=== PATIENT | male | born 1990 | race Two or more races ===

== ENCOUNTER 2020-09-25 08:33 | Emergency (ER) | payer OTHER, SELFPAY ==
--- NOTE | ~2020-09-25 | XR_ITS ---
EXAMINATION: XR ELBOW, LEFT CLINICAL INFORMATION: Elbow pain. Rule out effusion. COMPARISON: None TECHNIQUE: AP, lateral, and oblique views of the left elbow. FINDINGS: There is no evidence of acute fracture or dislocation of the left elbow. No left elbow effusion is seen. Joint spaces are maintained. There is a large amount of edema seen about the adjacent soft tissues from the distal upper arm to the proximal forearm and olecranon bursitis cannot be excluded. XR/XR elbow LT 2V IMPRESSION: No bony abnormality of the left elbow identified. No left elbow effusion. Large amount of edema present within the soft tissues.
[2020-09-25 08:38] VITALS: BP 148/91; PULSE 87; RESP 18; TEMP 36.6; O2SAT 97; BMI 25.7
--- NOTE | 2020-09-25 08:49 | ED.GENADULT ---
HPI - General Adult General Chief complaint: Allergic Reaction Stated complaint: arm swelling Time Seen by Provider: 09/25/20 08:37 Source: patient Mode of arrival: ambulatory Limitations: no limitations History of Present Illness HPI narrative: 30-year-old male previously healthy here with complaints of left arm pain, itching and swelling. Patient tells me 2 days ago he was stung by a wasp on the left upper extremity. The next day he noticed increasing redness and swelling to the area. He was seen at urgent care yesterday and prescribed doxycycline. He has taken 2 doses of doxycycline. Today when he woke up he noticed some increasing redness and swelling and became concerned and brought himself to the emergency department. He denies any fevers, chills, body aches, muscle aches. He feels well otherwise. No previous reactions to bee stings. Related Data Allergies Allergy/AdvReac Type Severity Reaction Status Date / Time No Known Allergies Allergy Unverified 11/22/19 16:30 Review of Systems Review of Systems: Yes all other systems are reviewed and are negative Constitutional: Constitutional: Reports no additional constitutional complaints, Denies body ache(s), Denies chills, Denies fever(s), Denies headache(s) and Denies weakness Eyes: Eyes: Reports no additional eye complaints and Denies change in vision ENT: Reports system reviewed and no additional complaints, except as documented, Denies dizziness, Denies headache(s), Denies nasal congestion, Denies nasal discharge and Denies neck pain Cardiovascular: Cardiovascular: Reports no additional cardiovascular complaints, Denies chest pain, Denies leg edema and Denies dyspnea Respiratory: Respiratory: Reports no additional respiratory complaints, Denies cough and Denies dyspnea Gastrointestinal: Gastrointestinal: Reports no additional gastrointestinal complaints, Denies abdominal pain, Denies diarrhea, Denies nausea and Denies vomiting Genitourinary: Genitourinary: Denies urinary incontinence Musculoskeletal: Musculoskeletal: Reports no additional musculoskeletal complaints, Denies back pain, Denies arthralgias, Denies joint swelling, Denies neck pain, Denies numbness and Denies tingling Integumentary/Breasts: Skin/Breast: Reports system reviewed and no additional complaints, except as docu, Reports swelling, Reports erythema and Denies rash Neurologic: Reports system reviewed and no additional complaints, except as documented, Denies Abnormal speech present, Denies dizziness, Denies headache(s), Denies numbness, Denies tingling and Denies weakness PMFSH Past Medical History Attestation statement: The following information was validated with the patient. Source: old records reviewed and nursing notes reviewed Medical History No known health problems Social History Social History Patient Tobacco Use Status: Never used Tobacco Use of substances other than those prescribed or required for medical reasons: No Advance Directives: Yes Advance Directives Information Provided: Yes Advance Directives on File: No Physical Exam Vital Signs: Vital Signs: Last Vital Signs Temp 97.9 F 09/25/20 08:38 Pulse 87 09/25/20 08:38 Resp 18 09/25/20 08:38 BP 148/91 H 09/25/20 08:38 Pulse Ox 97 09/25/20 08:38 Body Mass Index 25.7 Const: General: cooperative, healthy appearing, comfortable and no acute distress Orientation/consciousness: patient oriented x3 Limitations: no limitations HENMT: Head: Yes normal to inspection Ears: hearing grossly normal bilaterally General nose exam: Normal external nose present Face and sinus: Yes normal facial exam Mouth: Normal oral and palatal mucosa present Throat: Yes posterior oropharynx normal Eyes: General: appearance normal, both eyes and all related structures Pupils: Equal, round and reactive pupils present Neck: Neck: Yes normal visual inspection Chest: Chest palpation & inspection: normal inspection of the chest Resp: Effort & Inspection: normal respiratory effort Auscultation: clear to auscultation bilaterally Cardio: Rate: regular rate Rhythm: regular rhythm Peripheral pulses: Peripheral pulses 2+ throughout GI: Inspection: Yes normal to inspection Palpation (GI): Soft to palpation and nontender Auscultation: normal bowel sounds Back/Spine/Pelvis: Thoracic/Lumbar Spine: thoracic and lumbar spine normal to inspection Skin: General skin exam: no rashes or lesions noted Neuro: General: patient oriented x3, no focal motor deficits and normal sensation to monofilament Cranial nerves: Yes Equal, round and reactive pupils present Cognition (Neuro): normal cognition Speech: No Abnormal speech present Gait exam (Neuro): Normal gait present Motor exam (neuro): 5/5 motor strength present throughout Sensory Exam: Normal double simultaneous stimulation for sensation Extrem: Other: The compartments are soft, compressible. Patient is reporting mild discomfort. No severe pain. He is able to flex and extend the elbow with no difficulty or reports of pain. Neurovascular intact distally Course Course Course Narrative: 30-year-old male here with redness, itching, swelling and mild discomfort to the left upper extremity after a bee sting 2 days ago. Patient was seen at urgent care yesterday and there was concern for a superimposed cellulitis. He was placed on doxycycline 100 mg. He took 2 doses but feels like today there is increasing swelling and redness to the arm. He denies any fevers, chills, body aches or muscle aches. He has no medical history. Taking p.r.n. Benadryl which seems to help. On exam the patient does have a area of swelling and redness to the left upper extremity that is not circumferential. The compartments are soft and compressible with mild discomfort noted. There is full range of motion of the proximal joint. Will check x-ray of elbow. 929-x-ray unremarkable. Discussed case with DR Underwood. Likely needs more time with antibiotics at home. I would not change the antibiotics as I feel this is appropriate. Recommend [id number] Benadryl and Pepcid. The area was outlined with a skin marker.. Patient instructed to return with return precautions. Reviewed worrisome signs and symptoms. Comfortable discharge home. Medical Decision Making MDM Narrative Medical decision making narrative: Less likely septic joint with full range of motion with no reports of pain or difficulty moving the extremity Medical Records Medical records reviewed: Yes I reviewed the patient's medical records. Lab Data Lab results reviewed: Yes I reviewed the patient's lab results. Imaging Data left elbow xray: Attestation: I personally reviewed and interpreted this imaging study as follows: Radiologist's impression: EXAMINATION: XR ELBOW, LEFT CLINICAL INFORMATION: Elbow pain. Rule out effusion. COMPARISON: None TECHNIQUE: AP, lateral, and oblique views of the left elbow. FINDINGS: There is no evidence of acute fracture or dislocation of the left elbow. No left elbow effusion is seen. Joint spaces are maintained. There is a large amount of edema seen about the adjacent soft tissues from the distal upper arm to the proximal forearm and olecranon bursitis cannot be excluded. XR/XR elbow LT 2V IMPRESSION: No bony abnormality of the left elbow identified. No left elbow effusion. Large amount of edema present within the soft tissues. Discharge Plan Discharge Clinical Impression: Allergic reaction Cellulitis Qualifiers: Site of cellulitis: extremity Site of cellulitis of extremity: upper extremity Patient Disposition: Home, Self-Care Instructions: Cellulitis (ED), Insect Bite or Sting (ED) Additional Instructions: Continue the doxycycline. You have only taken 2 doses and it is too soon to tell if this will be effective or not. You should give it about 48 hours to determine effectiveness. Continue Benadryl as needed. Return for fever greater than 100.4, difficulty bending or extending the elbow, severe pain, numbness or tingling Try one dose of famotidine (pepcid) over the counter daily for the next few days as this may help with swelling Referrals: [facility] [Primary Care Provider] - 2 days
== END 2020-09-25 09:45 | disposition home or self-care (01) ==
PROVIDERS: Emergency Provider Emergency Medicine Emergency Medical Services
DX: L03.114 Cellulitis of left upper limb (principal); T63.441A Toxic effect of venom of bees, accidental (unintentional), initial encounter; Y92.9 Unspecified place or not applicable
CPT/HCPCS: 73070; 99283; 99284

== ENCOUNTER 2020-12-23 01:41 | Emergency (ER) | payer OTHER, SELFPAY ==
--- NOTE | ~2020-12-23 | CT_ITS ---
EXAMINATION: CT ANGIOGRAM CHEST CLINICAL INFORMATION: Left chest pain, left upper extremity heaviness COMPARISON: Chest x-ray from earlier today TECHNIQUE: Multiple axial images were obtained through the chest after the administration of 70 mL of Omnipaque 350 intravenous contrast. Extensive vascular post-processing including two-dimensional and three-dimensional reformatted images were created and reviewed on an independent workstation. This CT examination was performed using dose optimization techniques as appropriate, variously including the following: *Automated exposure control *Adjustment of mA and/or kV according to patient size (this includes techniques or standardized protocols for targeted exams where dose is matched to indication/reason for exam; i.e. extremities or head) *Use of iterative reconstruction technique DLP: 176 mGy-cm FINDINGS: No evidence of aortic dissection or aneurysm. No regions of consolidation bilaterally. No pneumothorax or pleural effusion. The visualized thyroid gland is unremarkable. There are subcentimeter mediastinal lymph nodes within the range of normal variation. Cardiac size is within normal limits; no pericardial effusion. No axillary lymphadenopathy is present. Visualized portions of the upper abdomen are within normal limits. No acute osseous findings are seen. CT/CT angio chest aorta IMPRESSION: No evidence of aortic dissection or aneurysm. No acute intrathoracic findings identified.
--- NOTE | ~2020-12-23 | XR_ITS ---
EXAMINATION: XR CHEST CLINICAL INFORMATION: Chest pain COMPARISON: 01/17/2020 TECHNIQUE: Frontal view of the chest was obtained. FINDINGS: The lungs are clear with no focal consolidation. No evidence of pneumothorax, pulmonary edema, or pleural effusions. The cardiomediastinal silhouette is unremarkable. No acute osseous findings. XR/XR chest 1V IMPRESSION: No acute cardiopulmonary findings.
--- NOTE | 2020-12-23 01:52 | ECG_ITS ---
Test Reason : cp Blood Pressure : / mmHG Vent. Rate : 059 BPM Atrial Rate : 059 BPM P-R Int : 158 ms QRS Dur : 096 ms QT Int : 416 ms P-R-T Axes : 065 044 -05 degrees QTc Int : 411 ms Sinus bradycardia RSR' or QR pattern in V1 suggests right ventricular conduction delay T-wave inversion in Inferior leads Abnormal ECG No previous ECGs available Referred By: Yvette Garcia Electronically Signed By:JOLENE PARRISH MD
[2020-12-23 02:39] LABS: MANUAL DIFF FLAG NO
[2020-12-23 02:41] LABS: Basophils Percent Auto 0.1 % (0-2); Eosinophils Absolute Auto 0.1 X10*3/uL (0.0-0.4); Eosinophils Percent Auto 1.3 % (0-4); Hematocrit 44.8 % (42-52); Hemoglobin 15.6 g/dl (14.0-18.0); Imm Gran Abs Auto 0.01 X10*3/uL (0.00-0.03); Imm Gran Pct Auto 0.1 % (0.0-0.4); Lymphocytes Absolute Auto 1.7 X10*3/uL (1.2-4.9); Lymphocytes Percent Auto 25.3 % (20-40); Mean Corpuscular HGB Conc 34.8 g/dl (31.0-36.0); Mean Corpuscular Hemoglobin 29.3 pg (27.0-33.0); Mean Corpuscular Volume 84.2 fL (80-98); Mean Platelet Volume 9.6 fL (9.4-12.4); Monocytes Absolute Auto 0.5 X10*3/uL (0.1-1.2); Monocytes Percent Auto 6.8 % (2-11); Neutrophils Absolute Auto 4.5 X10*3/uL (2.0-8.3); Neutrophils Percent Auto 66.4 % (45-73); Platelet Count 226 X10*3/uL (160-400); Red Blood Count 5.32 X10*6/uL (4.60-5.80); Red Cell Distribution Width 12.1 % (11.0-16.0); White Blood Count 6.8 X10*3/uL (4.8-10.8)
[2020-12-23 02:42] VITALS: BP 136/84; PULSE 87; RESP 14; TEMP 36.6; O2SAT 100; BMI 23.1
--- NOTE | 2020-12-23 02:50 | ED.CHESTPAIN ---
HPI - Chest Pain General Chief Complaint: Chest Pain Stated Complaint: CP, side pain Time Seen by Provider: 12/23/20 02:08 Source: patient Mode of arrival: ambulatory History of Present Illness HPI narrative: 30-year-old male without significant past medical history, no recent exercise regimens, no recent travel, no personal history of blood clots, denies any calf pain or swelling, denies any associated fever, chills, nausea, vomiting, and reports playing sports in high school. Patient states that his girlfriend woke him up at approximately 1:00 a.m. and said that he was ?breathing funny? and patient states that when he woke up he felt a vague squeezing in the left chest but denies any palpitations/dizziness/sweating/nausea and states that the sensation radiated into his left arm with feeling that it was numb but states that it was strange because he still had full strength and he states that it now simply feels like it is heavy and states that the discomfort also extended up an over his left shoulder and a little bit into the base of his neck. He denies any family history artery your vein abnormalities that he is aware of but states he did not know his father well. Related Data Home Medications Medication Instructions Recorded Confirmed No Known Home Meds 12/23/20 12/23/20 Allergies Allergy/AdvReac Type Severity Reaction Status Date / Time No Known Allergies Allergy Verified 12/23/20 05:27 Review of Systems Review of Systems: Pertinent positives and negatives as stated in HPI 10 point review of systems is otherwise negative. [facility] Past Medical History Source: nursing notes reviewed Medical History No known health problems Social History Social History Alcohol intake: never Patient Tobacco Use Status: Never used Tobacco Use of substances other than those prescribed or required for medical reasons: No Advance Directives: No Advance Directives Information Provided: Yes Physical Exam Vital Signs: Vital Signs: Last Vital Signs Temp 98 F 12/23/20 02:42 Pulse 67 12/23/20 06:00 Resp 14 12/23/20 06:00 BP 110/66 12/23/20 06:00 Pulse Ox 98 12/23/20 06:00 Body Mass Index 24.5 VITAL SIGNS: Reviewed. GENERAL: Well developed, well nourished, in no acute distress. HEAD: Normocephalic/atraumatic EYES: PERRLA, EOMI EARS: Ext canals without abnormality NOSE: Nares patent bilateral OROPHARYNX: no oral lesions noted, posterior pharynx clear and non-erythematous without noted tonsillar enlargement/erythema/exudates NECK: Supple, no adenopathy LUNGS: Normal breath sounds. No adventitious sounds or accessory muscle use. SpO2<100> CARDIOVASCULAR: Regular rate and rhythm without noted murmurs, no JVD or lower extremity edema, pulses are symmetrical ABDOMEN: Soft, non-tender, non-distended with bowel sounds. MUSCULOSKELETAL: No tenderness, deformities, or effusions noted on gross inspection. EXTREMITIES: No cyanosis, clubbing or edema, sensation is intact SKIN: Inspection of the skin reveals no rashes NEUROLOGIC: Alert and oriented x 4. Strength and sensation to light touch were grossly intact x 4. Course Course Course Narrative: 30-year-old male with history and clinical presentation suggestive of possible anxiety, but will rule out PE and doubt pneumonia. Review of all investigations shows significantly elevated troponin D-dimer 235, so CT angio was performed that was negative for dissection, or aneurysm. 0409: I discussed case with cardiology who recommends the heparin drip and protocol for NSTEMI, and recommends at this time repeat EKG. Recommendations are that patient be held here in the emergency room until evaluated in the morning. 0440: Patient currently without chest pain and repeat EKG was sent to Cardiology and patient was started on heparin drip after receiving initial bolus. 0455: Repeat troponin-7804, and patient continues to be chest pain-free. 0558: Discussed the case with Cardiology further in thinks at this time patient should be transferred to [facility] for NSTEMI and likely cardiac catheterization. 0625: Called [facility] for transfer and spoke to Dr Petty, Cardiology, who accepts admission. Patient informed of all changes, results, and plans as well as transfer. MDM - Chest Pain Lab Data Result diagrams: 12/23/20 04:55 12/23/20 02:34 Labs: Lab Results 12/23/20 12/23/20 12/23/20 Range/Units 02:34 02:34 02:34 WBC 6.8 (4.8-10.8) X10*3/uL RBC 5.32 (4.60-5.80) X10*6/uL Hgb 15.6 (14.0-18.0) g/dl Hct 44.8 (42-52) % MCV 84.2 (80-98) fL MCH 29.3 (27.0-33.0) pg MCHC 34.8 (31.0-36.0) g/dl RDW 12.1 (11.0-16.0) % Plt Count 226 D (160-400) X10*3/uL MPV 9.6 (9.4-12.4) fL Immature Gran % (Auto) 0.1 (0.0-0.4) % Neut % (Auto) 66.4 (45-73) % Lymph % (Auto) 25.3 (20-40) % Greenwood % (Auto) 6.8 (2-11) % Eos % (Auto) 1.3 (0-4) % Baso % (Auto) 0.1 (0-2) % Lymph # (Auto) 1.7 (1.2-4.9) X10*3/uL Green[place] # (Auto) 0.5 (0.1-1.2) X10*3/uL Eos # (Auto) 0.1 (0.0-0.4) X10*3/uL Baso # (Auto) 0.0 (0.0-0.2) X10*3/uL Abs Immat Gran (auto) 0.01 (0.00-0.03) X10*3/uL Absolute Neuts (auto) 4.5 (2.0-8.3) X10*3/uL Absolute Nucleated RBC 0.000 (0.0-0.012) X10*3/uL Nucleated RBC % (auto) 0.0 (0.0-0.2) /100WBC PT (9.9-13.0) SEC INR (0.9-1.1) APTT (24.1-38.0) SEC PTT (Heparin Protocol) (53-77.9) SEC D-Dimer NG/ML Sodium 141 (135-145) mmol/L Potassium 4.0 (3.3-5.1) mmol/L Chloride 104 (96-108) mmol/L Carbon Dioxide 29 (22-29) mmol/L Anion Gap 12 (12-20) BUN 19 H (9-16) mg/dL Creatinine 0.87 (0.5-1.4) mg/dL Estim Creat Clear Calc 142.0 Estimated GFR > 60 Random Glucose 111 (60-115) mg/dL Calcium 9.5 (8.4-10.2) mg/dL Troponin I High Sens 3689.1 H* (<3.5-35.0) ng/L COVID-19 (ROSIO) (Negative) COVID-19 Clin Com 12/23/20 12/23/20 12/23/20 Range/Units 02:34 02:34 04:55 WBC 7.4 (4.8-10.8) X10*3/uL RBC 4.81 (4.60-5.80) X10*6/uL Hgb 14.3 (14.0-18.0) g/dl Hct 40.1 L (42-52) % MCV 83.4 (80-98) fL MCH 29.7 (27.0-33.0) pg MCHC 35.7 (31.0-36.0) g/dl RDW 12.0 (11.0-16.0) % Plt Count 220 (160-400) X10*3/uL MPV 9.7 (9.4-12.4) fL Immature Gran % (Auto) (0.0-0.4) % Neut % (Auto) (45-73) % Lymph % (Auto) (20-40) % Greenwood % (Auto) (2-11) % Eos % (Auto) (0-4) % Baso % (Auto) (0-2) % Lymph # (Auto) (1.2-4.9) X10*3/uL Greenwood # (Auto) (0.1-1.2) X10*3/uL Eos # (Auto) (0.0-0.4) X10*3/uL Baso # (Auto) (0.0-0.2) X10*3/uL Abs Immat Gran (auto) (0.00-0.03) X10*3/uL Absolute Neuts (auto) (2.0-8.3) X10*3/uL Absolute Nucleated RBC 0.000 (0.0-0.012) X10*3/uL Nucleated RBC % (auto) 0.0 (0.0-0.2) /100WBC PT 12.1 (9.9-13.0) SEC INR 1.1 (0.9-1.1) APTT 33.0 (24.1-38.0) SEC PTT (Heparin Protocol) (53-77.9) SEC D-Dimer 238 NG/ML Sodium (135-145) mmol/L Potassium (3.3-5.1) mmol/L Chloride (96-108) mmol/L Carbon Dioxide (22-29) mmol/L Anion Gap (12-20) BUN (9-16) mg/dL Creatinine (0.5-1.4) mg/dL Estim Creat Clear Calc Estimated GFR Random Glucose (60-115) mg/dL Calcium (8.4-10.2) mg/dL Troponin I High Sens (<3.5-35.0) ng/L COVID-19 (ROSIO) Negative (Negative) COVID-19 Clin Com See Note 12/23/20 12/23/20 Range/Units 04:55 04:55 WBC (4.8-10.8) X10*3/uL RBC (4.60-5.80) X10*6/uL Hgb (14.0-18.0) g/dl Hct (42-52) % MCV (80-98) fL MCH (27.0-33.0) pg MCHC (31.0-36.0) g/dl RDW (11.0-16.0) % Plt Count (160-400) X10*3/uL MPV (9.4-12.4) fL Immature Gran % (Auto) (0.0-0.4) % Neut % (Auto) (45-73) % Lymph % (Auto) (20-40) % Greenwood % (Auto) (2-11) % Eos % (Auto) (0-4) % Baso % (Auto) (0-2) % Lymph # (Auto) (1.2-4.9) X10*3/uL [place] # (Auto) (0.1-1.2) X10*3/uL Eos # (Auto) (0.0-0.4) X10*3/uL Baso # (Auto) (0.0-0.2) X10*3/uL Abs Immat Gran (auto) (0.00-0.03) X10*3/uL Absolute Neuts (auto) (2.0-8.3) X10*3/uL Absolute Nucleated RBC (0.0-0.012) X10*3/uL Nucleated RBC % (auto) (0.0-0.2) /100WBC PT 12.8 (9.9-13.0) SEC INR 1.1 (0.9-1.1) APTT (24.1-38.0) SEC PTT (Heparin Protocol) 33.2 L (53-77.9) SEC D-Dimer NG/ML Sodium (135-145) mmol/L Potassium (3.3-5.1) mmol/L Chloride (96-108) mmol/L Carbon Dioxide (22-29) mmol/L Anion Gap (12-20) BUN (9-16) mg/dL Creatinine (0.5-1.4) mg/dL Estim Creat Clear Calc Estimated GFR Random Glucose (60-115) mg/dL Calcium (8.4-10.2) mg/dL Troponin I High Sens 7804.2 H* D (<3.5-35.0) ng/L COVID-19 (ROSIO) (Negative) COVID-19 Clin Com ECG Data ECG #1: Attestation: I personally reviewed and interpreted this ECG as follows: Prior ECG tracings: not available for review Interpretation: Sinus bradycardia, HR -59, no STEMI, CO/QRS/QTC are within normal limits, noted S QT 3. Discharge Plan Discharge Clinical Impression: Chest pain, Non-ST elevation SD (NSTEMI) Patient Disposition: Xfer Acute Care Hospital Transfer Details: Cardiac services Prescriptions: No Action No Known Home Meds RF: 0
[2020-12-23 02:51] LABS: D Dimer 238 NG/ML
[2020-12-23 02:54] LABS: Anion Gap 12 (12-20); Blood Urea Nitrogen 19 mg/dL (9-16); Calcium 9.5 mg/dL (8.4-10.2); Carbon Dioxide 29 mmol/L (22-29); Chloride 104 mmol/L (96-108); Estimated Glomerular Filt Rate > 60; Glucose Random 111 mg/dL (60-115); Sodium 141 mmol/L (135-145)
[2020-12-23 02:59] LABS: COVID-19 Test Negative (Negative); IDNOW Serial# 9DD0AD1C
[2020-12-23 03:03] LABS: Troponin-I High Sensitivity 3689.1 ng/L (<3.5-35.0)
[2020-12-23 03:36] VITALS: BP 129/83; PULSE 76; RESP 19; O2SAT 98
[2020-12-23] MEDS: iohexoL 350 MG/ML 100 ML INFUS..BTL 70 ML IV (03:36)
[2020-12-23 04:29] LABS: INTERNATIONAL NORM RATIO 1.1 (0.9-1.1); Prothrombin Time 12.1 SEC (9.9-13.0)
--- NOTE | 2020-12-23 04:33 | ECG_ITS ---
Test Reason : repeat Blood Pressure : / mmHG Vent. Rate : 067 BPM Atrial Rate : 067 BPM P-R Int : 166 ms QRS Dur : 098 ms QT Int : 400 ms P-R-T Axes : 074 048 005 degrees QTc Int : 422 ms Normal sinus rhythm Nonspecific T wave abnormality Inferior leads Borderline ECG No significant changes seen Referred By: Yvette Garcia Electronically Signed By:JOLENE PARRISH MD
[2020-12-23 04:40] VITALS: BMI 24.5
[2020-12-23 04:56] VITALS: BP 114/68; PULSE 60; RESP 16; O2SAT 98
[2020-12-23 05:01] LABS: Hematocrit 40.1 % (42-52); Hemoglobin 14.3 g/dl (14.0-18.0); Mean Corpuscular HGB Conc 35.7 g/dl (31.0-36.0); Mean Corpuscular Hemoglobin 29.7 pg (27.0-33.0); Mean Corpuscular Volume 83.4 fL (80-98); Mean Platelet Volume 9.7 fL (9.4-12.4); Platelet Count 220 X10*3/uL (160-400); Red Blood Count 4.81 X10*6/uL (4.60-5.80); White Blood Count 7.4 X10*3/uL (4.8-10.8)
[2020-12-23 05:06] LABS: INTERNATIONAL NORM RATIO 1.1 (0.9-1.1); Prothrombin Time 12.8 SEC (9.9-13.0)
[2020-12-23 05:09] LABS: PTT Heparin Drip 33.2 SEC (53-77.9)
[2020-12-23] MEDS: Heparin Sodium,Porcine 5,000 UNIT/ML VIAL 4000 UNIT IVPUSH (05:16)
[2020-12-23] MEDS: Heparin Sodium,Porcine/1/2NS 25,000 UNIT/250 ML IV.SOLN 12.12 UNIT IVCONT (05:19)
[2020-12-23] MEDS: Aspirin 325 MG TABLET PO (05:21)
[2020-12-23 06:00] VITALS: BP 110/66; PULSE 67; RESP 14; O2SAT 98
--- NOTE | 2020-12-23 06:00 | PC.NURSE ---
Dr Lopez called at [address] Garcia, awaiting call back.
--- NOTE | 2020-12-23 06:25 | PC.NURSE ---
4075 Dr Lopez called back.
--- NOTE | 2020-12-23 06:25 | PC.NURSE ---
Patient has had no chest pain since arriving at the hospital and he is hemodynamically stable. Patient 's initial troponic was > 3700 and f/u troponin doubled to >7800 and patient is now going to be transferred to [facility] for further evaluation and cardiac cath. Currently on heparin drip.
--- NOTE | 2020-12-23 06:25 | PC.NURSE ---
0625 transfer line called at [facility].
--- NOTE | 2020-12-23 06:41 | PC.NURSE ---
Dr Garcia spoke with cardiology at [facility], Dr Petty. Hospitalist Dr Moreno will be accepting pt. Awaiting call back from [facility] with bed placement.
[2020-12-23] MEDS: Heparin Sodium,Porcine/1/2NS 25,000 UNIT/250 ML IV.SOLN 10 UNIT IVCONT (07:08)
[2020-12-23 07:10] VITALS: BP 121/75; PULSE 60; RESP 18; O2SAT 98
--- NOTE | 2020-12-23 07:10 | PC.NURSE ---
PT RESTING COMFORTABLY ON THE STRETCHER, RESPIRATIONS EVEN AND UNLABORED, PT DENIES ALL PAIN AT THIS TIME, NO SOB. VS STABLE, NS ON THE MONITOR. [place]AN [place] [facility]
--- NOTE | 2020-12-23 07:36 | PC.NURSE ---
@ 5321 RETURN CALL FROM [facility] OF [facility] PT TX LINE WITH ROOM ASSIGNMENT AND ACCEPTING MD FOR THIS TRANSFER DR GINNA WILEY [employer] 5 BED 21B RN TO RN [phone] FAX FACE SHEET TO [phone]
--- NOTE | 2020-12-23 08:00 | PC.NURSE ---
@ 0283 [facility] CALLED FOR ALS TRANSPORT WITH HEMATOLOGY SUPERVISOR AND HEPARIN FOR THIS PT
[2020-12-23 08:57] VITALS: BP 117/64; PULSE 54; RESP 18
--- NOTE | 2020-12-23 09:00 | PC.NURSE ---
CALLED REPORT TO [facility], BUT THIS RN WAS TOLD TO CALL BACK IN ABOUT 10 MIN , RN UNABLE TO TAKE REPORT AT THIS TIME
--- NOTE | 2020-12-23 09:28 | PC.NURSE ---
REPORT GIVEN TO VERONICA CONWAY AT [facility]
== END 2020-12-23 09:29 | disposition short-term general hospital (02) ==
PROVIDERS: Emergency Provider Student in an Organized Health Care Education/Training Program
DX: I21.4 Non-ST elevation (NSTEMI) myocardial infarction (principal); Z20.822 Contact with and (suspected) exposure to COVID-19
CPT/HCPCS: 36415; 71045; 71275; 80048; 84484; 85025; 85027; 85379; 85610; 85730; 87635; 93005; 96365; 96366; 96375; 96376; 99285; Q9967

== ENCOUNTER → 2022-02-10 13:34 | Outpatient (BNVA) | payer SELFPAY | PROVIDERS: Visit Provider Physician Assistant Medical | DX: Z02.79 Encounter for issue of other medical certificate (principal) ==